=== PATIENT | female | born 1950 | race Caucasian/White ===

== ENCOUNTER 2016-10-24 21:16 | Emergency (ER) | payer OTHER ==
[~2016-10-24] VITALS: Ht 170.2 cm; Wt 97.7 kg
[2016-10-24 21:20] VITALS: BP 140/72; PULSE 74; RESP 18; O2SAT 98
--- NOTE | 2016-10-24 22:07 | ED.REPORT ---
HPI-General Illness Date of Service Oct 24, 2016 ED Provider: Jay Jay Solorzano DO A 66 year old female with a history of diabetes and partial renal nephrectomy for kidney cancer presents to the the ED due to taking the incorrect insulin. The pt injected 45 units of her Humalog instead of her Lantus at 20:45 tonight. She injected this medication into her leg. The pt does not measure her blood sugar frequently and is unsure what it was at the time that she injected the insulin. The pt's blood sugar is 366 in the ED. Nursing Notes Stated Complaint: GAVE WRONG INSULIN Chief Complaint: General Complaint Nursing Notes Reviewed: Yes Allergies: Coded Allergies: No Known Allergies (Unverified , 10/24/16) General Time Seen by MD: 22:07 Chief Complaint Other (Incorrect insulin dosage) Hx Obtained From: Patient Arrived By: Walk-in Sudden in Onset?: Yes Onset Occurred: 1 - 4 hours ago Symptom Duration: Since onset Recent Healthcare: No recent doctor visit, No recent hospitalization Similar Sx Previous: No Past Medical History Past Medical History diabetes kidney cancer Past Surgical History partial renal nephrectomy for kidney cancer Smoking History Unknown if Ever Smoker Social History Other Social History: Good social support Ambulatory Status Independent Review of Systems Full Review of Systems Respiratory: Denies: Non-productive cough, Shortness of breath Cardiovascular: Denies: Chest pain GI: Denies: Abdominal pain, Vomiting Musculoskeletal: Denies: Back pain, Neck pain Skin: Denies Rash Complete sys rev & neg: except as marked. Physical Exam Vital Signs Vital Signs Date Time Temp Pulse Resp B/P Pulse Ox O2 Delivery O2 Flow Rate FiO2 10/25/16 00:11 36.6 70 16 138/70 99 Room Air 10/24/16 21:20 36.7 74 18 140/72 98 Room Air Initial VS: Reviewed General/Constitutional: Awake, Alert Head / Eyes: Atraumatic, Normocephalic, PERRL, EOMI ENT: Atraumatic, Airway patent, Mucous membranes moist Neck: Atraumatic, Supple, Full range of motion Respiratory / Chest: Atraumatic, Breath sounds NL, Breath sounds = bilat, No respiratory distress Cardiovascular: Heart rate NL, Regular rhythm, Heart sounds NL Abdomen: Atraumatic, Soft, Non-tender Back: Atraumatic, Full range of motion Upper Extremities Upper Extremity / MS: Atraumatic, Full range of motion Lower Extremity / Pelvis / MS: Atraumatic, Full range of motion Skin: Atraumatic, Color NL, No rash, Warm, Dry Neurologic: Oriented X3, Speech NL, No motor deficits, No sensory deficits Psychiatric: Affect NL, Mood NL Interpretation & Diagnostics Pulse Oximetry Interpretation Pulse Oximetry Interpretation: 98% on room air Pulse Oximetry: Pulse Ox normal Re-Eval/Medical Decision Med Decision/Clinical Course It does not appear that Margie is suffering any adverse effects from the insulin overdose. The peak effect should have passed about 30 minutes prior to discharge. She plans on staying awake until 2 AM. This will put her at the five-hour isabelle. By then the Humalog should have run its course. She is not going to use her Lantus tonight. If her blood sugar drops below 170 she will start consuming carbohydrates. If she starts below whatsoever she will come back to the ER. She has a family member bring her in a help check her blood sugar. Time of Eval: 00:02 Patient Status: Condition improved Re-Evaluation/Progress Note: Pt rechecked, whose blood sugar remains above 200. The diagnosis and plan for discharge are discussed. The pt understands and agrees with the plan. All questions are addressed at this time. Counseled Regarding: Diagnosis, Lab results, Need for follow-up, When/why to return to ED Discharge & Departure Primary Impression: Insulin overdose Encounter type: initial encounter Injury intent: accidental or unintentional Qualified Code: T38.3X1A - Poisoning by insulin and oral hypoglycemic [antidiabetic] drugs, accidental (unintentional), initial encounter Disposition: Home Discharge Condition All VS Reviewed: Yes Condition: Stable Additional Instructions: Keep a close eye on your blood sugar. If your blood sugar drops below 150, start consuming glucose. Do not taking any other insulin tonight including your Lantus. Call your primary care physician to arrange a follow up appointment next week for further evaluation. Return to the emergency department if you develop any new or worsening symptoms. Referrals: Isabelle Pinto DO Scribe Attestation Portions of this note were transcribed by Nata Ochoa. I, Dr. Solorzano personally performed the history, physical exam and medical decision-making; I reviewed and confirmed the accuracy of the information in the transcribed note. copies to: Isabelle Pinto Todd P DO Oct 24, 2016 22:07 NATA OCHOA Oct 24, 2016 22:17
[2016-10-25 00:11] VITALS: BP 138/70; PULSE 70; RESP 16; O2SAT 99
== END 2016-10-25 00:12 | disposition home or self-care (01) ==
LOC: SED 21:16
DX: T38.3X1A Poisoning by insulin and oral hypoglycemic [antidiabetic] drugs, accidental (unintentional), initial encounter (principal); X58.XXXA Exposure to other specified factors, initial encounter; Y93.89 Activity, other specified; Y99.8 Other external cause status; Y92.008 Other place in unspecified non-institutional (private) residence as the place of occurrence of the external cause; E11.29 Type 2 diabetes mellitus with other diabetic kidney complication; Z90.5 Acquired absence of kidney; Z85.528 Personal history of other malignant neoplasm of kidney; Z79.4 Long term (current) use of insulin